=== PATIENT | female | born 1990 | race Caucasian/White ===

== ENCOUNTER → 2018-05-28 | Outpatient (CLI) | payer OTHER ==
[2018-05-28 10:11] LABS: ALT 29 U/L (9-52); AST 22 U/L (14-36); Alkaline Phosphatase 98 U/L (38-126); Anion Gap 12 mmol/L; Blood Urea Nitrogen 22 mg/dL (7-17); Carbon Dioxide 26 mmol/L (22-30); Chloride 102 mmol/L (98-107); Glucose 88 mg/dL (74-99); Potassium 4.1 mmol/L (3.5-5.1); Sodium 140 mmol/L (137-145); Total Bilirubin 0.6 mg/dL (0.2-1.3); Total Protein 6.8 g/dL (6.3-8.2)
[2018-05-28 19:04] LABS: Hemoglobin A1C 8.2 % (4.0-6.0)
== END | disposition home or self-care (01) ==
LOC: LABWHC1 09:04
PROVIDERS: ATTEND Internal Medicine Endocrinology, Diabetes & Metabolism
DX: E11.65 Type 2 diabetes mellitus with hyperglycemia (principal)
CPT/HCPCS: 36415; 80053; 82607; 83036; 84443

== ENCOUNTER → 2021-10-20 | Outpatient (CLI) | payer OTHER ==
--- NOTE | 2021-10-20 14:03 | BD ---
EXAMINATION TYPE: Axial Bone Density DATE OF EXAM: 10/20/2021 COMPARISON: NONE CLINICAL HISTORY: 31 YR OLD FEMALE......ICD-10 CODE: Z78.9 PROLONGED USE OF DEPO Height: 65 Weight: 137 FRAX RISK QUESTIONS: NOTHING TO NOTE HERE RISK FACTORS HISTORY OF: HX OF RT FEMUR REVISION FOR LENGTH OF BONE, WITH HARDWARE, UNKNOWN WHEN Postmenopausal woman: UNKNOWN, ON DEPO...FOR 10 YRS NOW Hyperparathyroidism: NO Adrenal Insufficiency: NO MEDICATIONS: Additional Medications: ANTI-SEIZURE MEDS, ANXIETY MEDS, METFORMIN, DEPO SHOTS Additional History: CHALLENGED, SEIZURES, LONG USE OF DEPO, MENTALLY CHALLENGED, RT REVISION OF FEMUR , WITH HARDWARE. EXAM MEASUREMENTS: Bone mineral densitometry was performed using the [employer] System. 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 This wou ld be considered normal for patient's age.
== END ==
LOC: RADBDWWP 12:39
PROVIDERS: ATTEND Obstetrics & Gynecology
DX: Z78.9 Other specified health status (principal)
CPT/HCPCS: 77080

== ENCOUNTER → 2022-12-08 | Outpatient (CLI) | payer OTHER ==
--- NOTE | 2022-12-09 07:23 | US ---
EXAMINATION TYPE: US pelvic complete DATE OF EXAM: 12/08/2022 COMPARISON: NONE CLINICAL HISTORY: BRCA 2 positive. TECHNIQUE: . Transabdominal sonographic images of the pelvis were acquired. Date of LMP: Unknown due to bc shot EXAM MEASUREMENTS: Uterus: 6.2 x 1.5 x 1.3 cm Endometrial Stripe: 0.30 cm Right Ovary: 1.7 x 1.4 x 1.8 cm Left Ovary: 2.7 x 1.5 x 1.3 cm 1. Uterus: Anteverted wnl 2. Endometrium: wnl 3. Right Ovary: wnl 4. Left Ovary: wnl follicles demonstrated. 5. Bilateral Adnexa: wnl 6. Posterior cul-de-sac: wnl IMPRESSION: Unremarkable transabdominal pelvic ultrasound.
== END | disposition home or self-care (01) ==
LOC: RADUSWWP 13:32
PROVIDERS: ATTEND Obstetrics & Gynecology
DX: Z15.01 Genetic susceptibility to malignant neoplasm of breast (principal)
CPT/HCPCS: 76856; 86304

== ENCOUNTER → 2023-05-09 | Outpatient (CLI) | payer OTHER ==
[2023-05-09 15:58] LABS: Basophils # (A) 0.03 X 10*3/uL (0.00-0.10); Basophils % (A) 0.8 %; Eosinophils # (A) 0.13 X 10*3/uL (0.04-0.35); Eosinophils % (A) 3.4 %; HCT 42.3 % (37.2-46.3); HGB 12.9 d/dL (12.0-15.0); Lymphocytes # (A) 1.48 X 10*3/uL (0.90-5.00); Lymphocytes % (A) 38.7 %; MCH 31.6 pg (27.0-32.0); MCHC 30.5 d/dL (32.0-37.0); MCV 103.7 FL (80.0-97.0); Mean Platelet Volume 10.6 FL (9.5-12.2); Monocytes % (A) 7.9 %; NRBC Per 100 WBC 0 X 10*3/uL (0.00-0.01); Neutrophils # (A) 1.87 X 10*3/uL (1.80-7.70); Neutrophils % (A) 48.9 %; Platelet Count 235 X 10*3/uL (140-440); RBC 4.08 X 10*6/uL (4.10-5.20); RDW 14.3 % (11.5-14.5); WBC 3.82 X 10*3/uL (4.50-10.00)
[2023-05-09 16:02] LABS: ALT 19 U/L (8-44); AST 14 U/L (13-35); Albumin/Globulin Ratio 2.22 Ratio (1.60-3.17); Alkaline Phosphatase 54 U/L (41-126); Blood Urea Nitrogen 19.2 mg/dL (9.0-27.0); Calcium 9.1 mg/dL (8.7-10.3); Chloride 105 mmol/L (96-109); Chol/HDL Ratio 3.57 Ratio; Globulin 1.8 d/dL (1.6-3.3); Glucose 117 mg/dL (70-110); Potassium 4.2 mmol/L (3.5-5.5); Sodium 141 mmol/L (135-145); Total Bilirubin 0.2 mg/dL (0.3-1.2); Total Protein 5.8 d/dL (6.2-8.2); VLDL Calculation 18.58 mg/dL (5.00-40.00)
== END | disposition home or self-care (01) ==
LOC: LABWHC1 10:02
PROVIDERS: ATTEND Physician Assistant
DX: E11.65 Type 2 diabetes mellitus with hyperglycemia (principal); E11.22 Type 2 diabetes mellitus with diabetic chronic kidney disease; N18.31 Chronic kidney disease, stage 3a; F41.9 Anxiety disorder, unspecified; K59.09 Other constipation
CPT/HCPCS: 36415; 80053; 80061; 83036; 84443; 85025

== ENCOUNTER → 2023-08-18 | Outpatient (CLI) | payer OTHER ==
--- NOTE | 2023-08-18 14:16 | US ---
EXAMINATION TYPE: US pelvic complete DATE OF EXAM: 08/18/2023 COMPARISON: US 12/08/2022 CLINICAL INDICATION: Female, 33 years old with history of N83.00 FOLLICULAR CYST OF OVARY, UNSPECIFIE D SIDE; BRCA 2 positive, left ovarian cyst per order. G0. Patient's guardian present for exam. Transv aginal deferred due to patient's condition and per patient's co-guardian. TECHNIQUE: Transabdominal (TA). Transabdominal sonographic images of the pelvis were acquired. Date of LMP: Unknown, patient on bc shot x 10 years EXAM MEASUREMENTS: Uterus: 6.7 x 3.3 x 1.9 cm Endometrial Stripe: 0.25 cm Right Ovary: 2.2 x 1.4 x 1.2 cm Left Ovary: Obscured 1. Uterus: Anteverted 2. Endometrium: 0.25 cm 3. Right Ovary: Appears wnl 4. Left Ovary: Obscured 5. Bilateral Adnexa: Enlarged vessels seen left adnexa/adjacent to the uterus: 1.2 cm. 6. Posterior cul-de-sac: Appears wnl IMPRESSION: 1. No evidence of suspicious adnexal mass. Note is made the left ovary was obscured. Prominent vessel s in the left adnexa can be associated with pelvic congestion syndrome and pelvic varices correlate c linically.
== END | disposition home or self-care (01) ==
LOC: RADUSWWP 13:36
PROVIDERS: ATTEND Obstetrics & Gynecology
DX: N83.02 Follicular cyst of left ovary (principal)
CPT/HCPCS: 76856

== ENCOUNTER → 2023-10-23 | Outpatient (CLI) | payer OTHER ==
--- NOTE | 2023-10-23 12:10 | BD ---
EXAMINATION TYPE: Axial Bone Density DATE OF EXAM: 10/23/2023 CLINICAL HISTORY: 33 years old Female. ICD-10 CODE: M85.88 DISORDER OF BONE Height: 65 Weight: 129.8 FRAX RISK QUESTIONS: Alcohol (3 or more units per day) Family History (Parent hip fracture): no Glucocorticoids (More than 3mos): no History of Fracture in Adulthood: no Secondary Osteoporosis: 1. Type 1 Diabetes: yes 2. Hyperthyroidism: no 3. Menopause before 45: na 4. Malnutrition: no 5. Chronic liver disease: no Rheumatoid Arthritis: no Current Tobacco Use: no RISK FACTORS HISTORY OF: Hip Fracture (Right/Left): no Spine Fracture: no History of Wrist Fracture: no Surgery to Spine/Hip(right/left)/Wrist (right/left): Rt Hip age 14 Family History of Osteoporosis: no Active: no Diet low in dairy products/other sources of calcium: yes Postmenopausal woman: no Take estrogen and/or progesterone medications: yes How long: past 10 years Lost more than 2 inches in height since high school: na Frequent falls: no Poor Health: no Hyperparathyroidism: no Adrenal Insufficiency: no MEDICATIONS: Prednisone or other steroids: no Thyroid Medications: no Osteoporosis Medications:no Additional Medications: see list Additional History: EXAM MEASUREMENTS: Bone mineral densitometry was performed using the [employer] System. Bone mineral density as measured about the Lumbar spine is: ----- L1-L4(G/cm2): 1.062 T Score Values are as follows: ----- L1: -0.8 ----- L2: -0.5 ----- L3: -1.2 ----- L4: -1.5 ----- L1-L4: -1.0 Z Score Values are as follows: ----- L1: -0.6 ----- L2: -0.3 ----- L3: -0.9 ----- L4: -1.3 ----- L1-L4: -0.8 Bone mineral density has: decreased -2.7 % since study of: 10/20/2021 Bone mineral density about the L hip (g/cm2): 0.780 T Score values are as follows: -----L Neck: -2.1 -----L Total: -1.8 Z Score values are as follows: -----L Neck: -1.8 -----L Total: -1.6 Bone mineral density has: decreased -2.1 % since study of: 10/20/2021 FRAX%s: The graph provided illustrates a % chance for a major osteoporotic fx and a % chance for the hips probability for fx in 10 years time. No FRAX given due to patient age. IMPRESSION: Osteopenia (T Score between -2.5 and -1). There is slightly increased risk of fracture and the patient may be considered for treatment. Re-Screen 2-5 years. NOTE: T-SCORE=SD OF THE YOUNG ADULT MEAN.
== END | disposition home or self-care (01) ==
LOC: RADBDWWP 10:20
PROVIDERS: ATTEND Obstetrics & Gynecology
DX: M85.89 Other specified disorders of bone density and structure, multiple sites (principal); Z78.9 Other specified health status
CPT/HCPCS: 77080